=== PATIENT | female | born 1965 | race Caucasian/White ===

== ENCOUNTER 2020-01-22 06:18 | Emergency (ER) | payer SELFPAY ==
[2020-01-22] MEDS ORDERED: Sodium Chloride 0.9% 10 ML Syringe FLUSH PRN (06:33)
[2020-01-22] MEDS ORDERED: Sodium Chloride 0.9% 2.5 ML Syringe FLUSH PRN (06:33)
[2020-01-22] MEDS ORDERED: Aspirin 81 MG Tab.Chew PO ONE (06:34)
--- NOTE | 2020-01-22 06:37 | EDM.PDOC ---
<Esteban Dubon - Last Filed: 01/22/20 18:28> ED HPI GENERAL MEDICAL PROBLEM - General Chief Complaint: Chest Pain Stated Complaint: HEADACHE Time Seen by Provider: 01/22/20 06:25 - History of Present Illness INITIAL COMMENTS - FREE TEXT/NARRATIVE: Patient was signed out to me by Dr. Ricks pending labs and imaging at 7 AM I did reevaluate the patient and the patient is still having intermittent left- sided chest pain which she describes as sharp lasting approximately 10 seconds not associated with diaphoresis, nausea, or vomiting. 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 She did get retested this morning and that result is pending. She denies any radiation of this pain to her back and denies any shortness of breath, cough, fever, or chills. At the time of my reevaluation her blood pressure improved to 190/94 with adequate oxygenation and the patient was not tachycardic. Labs reviewed CBC reveals thrombocytosis with a platelet count of 480. D-dimer was negative. CMP reveals hypokalemia at 3.3 and a mildly elevated BUN at 21 otherwise unremarkable. Troponin is negative. The radiological images were viewed by myself along with reading the report from the radiologist. Chest x-ray does not reveal any acute cardiopulmonary process. I did have a discussion with the patient regarding the pain. At this time we will try to treat her symptomatically. We will provide her with [place] by mouth for pain relief. I will also replenish her potassium by mouth. At this time given there is been approximately 6 hours since chest pain started and troponin is negative this is unlikely to be cardiac in nature, given that the D-dimer is negative this is also highly unlikely this is a pulmonary embolism or aortic dissection. We will reevaluate the patient after symptomatic treatment. After period of observation the patient continued to remain hemodynamically stable. I did refill the patient's lisinopril prescription. I discussed with her at this time that she be stable for discharge. I discussed with her that she needs to follow-up with her primary care physician within 2 to 3 days. She is to take Tylenol and Motrin for any pain relief. She was amenable discharge at this time and had no further questions DISPOSITION: The patient was discharged home in stable condition. The patient will follow up with PCP within 2 to 3 days CONDITION: Fair PROCEDURES: None FINAL IMPRESSION(S)/DIAGNOSES: 1. Acute atypical chest pain Esteban Dubon M.D. - Related Data Allergies Allergy/AdvReac Type Severity Reaction Status Date / Time No Known Allergies Allergy Verified 01/22/20 06:29 Home Meds: Home Meds Desvenlafaxine Succinate [Pristiq ER] 200 mg PO DAILY 01/22/20 [History] Ibuprofen [Motrin] 800 mg PO BIDM PRN 01/22/20 [History] lisinopriL [Lisinopril] 40 mg PO DAILY #30 01/22/20 [Rx] Departure - Departure Time of Disposition: 09:06 Disposition: Home, Self-Care 01 Clinical Impression: Chest wall pain - Discharge Information *PRESCRIPTION DRUG MONITORING PROGRAM REVIEWED*: No *COPY OF PRESCRIPTION DRUG MONITORING REPORT IN PATIENT MAYI: No Prescriptions: lisinopriL [Lisinopril] 40 mg PO DAILY #30 Instructions: Chest Wall Pain, [id number] Referrals: PCP,None [Primary Care Provider] - Forms: ED Department Discharge Additional Instructions: [id number] anti-inflammatory medicines are best for this type of pain. Sleep is imperative. Must get plenty of rest. Please follow up with your PCP in [place]. Return to ED if you have worsening chest pain, shortness of breath. [facility] [address] [place] [address] [place] [address] The following information is given to patients seen in the emergency department who are being discharged to home. This information is to outline your options for follow-up care. We provide all patients seen in our emergency department with a follow-up referral. The need for follow-up, as well as the timing and circumstances, are variable depending upon the specifics of your emergency department visit. If you don't have a primary care physician on staff, we will provide you with a referral. We always advise you to contact your personal physician following an emergency department visit to inform them of the circumstance of the visit and for follow-up with them and/or the need for any referrals to a consulting specialist. The emergency department will also refer you to a specialist when appropriate. This referral assures that you have the opportunity for follow-up care with a specialist. All of these measure are taken in an effort to provide you with optimal care, which includes your follow-up. Under all circumstances we always encourage you to contact your private physician who remains a resource for coordinating your care. When calling for follow-up care, please make the office aware that this follow-up is from your recent emergency room visit. If for any reason you are refused follow-up, please contact the [facility] Emergency Department at and asked to speak to the emergency department charge nurse. <Tre Ricks - Last Filed: 01/22/20 18:36> ED HPI GENERAL MEDICAL PROBLEM - History of Present Illness INITIAL COMMENTS - FREE TEXT/NARRATIVE: History of present illness: [] Patient complains of chest pain. She works nights but was off the night. She does not sleep much during the nights that she is off. At 1 AM while she was laying down she got a sudden sharp chest pain that lasted 20 seconds. It is in the left chest. She got another one at 2 AM. It also lasted 20 seconds. During that time. Tonight she has diaphoresis but it is unrelated to the ep isodes of pain. Nothing makes the pain worse or brings it on. It is sharp and severe. It is happening more frequently as the night goes on but not lasting longer. 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 Cardiovascular risk-she is a non-smoker and not diabetic. She takes lisinopril 40 mg a day and did not get a dose in the last 24 hours because she is out of her medicine. She does not take any medicine for cholesterol. 2. Thromboembolic risk she is obese. She does not smoke or take exogenous hormones. She has not had any recent immobilization or surgery. She has a negative personal and family history of thromboembolic disease. Review of systems: As per history of present illness and below otherwise all systems reviewed and negative. Past medical history: As per history of present illness and as reviewed below otherwise noncontributory. Surgical history: As per history of present illness and as reviewed below otherwise noncontribu tory. Social history: No reported history of drug or alcohol abuse. Family history: As per history of present illness and as reviewed below otherwise noncontributory. Physical exam: Constitutional - well developed, well-nourished and in no acute distress HEENT - normocephalic, no evidence of trauma - external nose and mouth normal - no mass in neck and no JVD - mucosae moist EYES - full EOM, PERRL, no icterus - no evidence of inflammation, injection, or drainage Respiratory -reproducible chest pain when pressure on the left sternal border at the mid sternum. No respiratory distress, equal bilateral expansion, lungs clear to auscultation and no abnormal lung sounds Cardiovascular - Regular Rhythm with S1 and S2 appreciated and no murmur, gallop or rub. GI - abdomen soft without distension or organomegaly - normal bowel sounds - no guard or rebound Musculoskeletal no gross deformity of long bones or joints - no tenderness, swelling or edema Neurologic - Alert and oriented times four - CN II-XII grossly intact - motor sensory and coordination symmetrically normal Psychiatric - appropriate mood and affect with normal thought content Hematologic - No petechiae or purpura - mucosa appropriate color and sclera not pale - normal nail bed color and refill Integument - no rash or evidence of trauma - normal turgor Diagnostics: [] Therapeutics: [] Impression: [] Plan: [] Definitive disposition and diagnosis as appropriate pending reevaluation and review of above. upper chest Pain Score (Numeric/FACES): 0 headache Pain Score (Numeric/FACES): 4 ED ROS GENERAL - Review of Systems Review Of Systems: Comprehensive ROS is negative, except as noted in HPI. ED EXAM, GENERAL - Physical Exam Exam: See Below Free Text/Narrative:: Physical exam is in the HPI. #1 Interpretation EKG Interpretation Comments: EKG done 01/22/2020 at 6:25 AM and interpreted at 631 sinus rhythm with a heart rate of 80 CA interval 182. QT duration 419. [place] 62. Wave progression. Transition is noted. Nonspecific ST abnormality. No prior for comparison. Impression no acute injury. Course - Vital Signs Text/Narrative:: Response to therapy and results of the testing to be evaluated by my partner as my shift is ending. Last Recorded V/S: Last Vital Signs Temp 36.1 C 01/22/20 06:22 Pulse 68 01/22/20 09:30 Resp 16 01/22/20 09:30 BP 162/93 H 01/22/20 09:30 Pulse Ox 97 01/22/20 09:30 - Orders/Labs/Meds Orders: Active Orders 24 hr Category Date Time Status Saline Lock Insert [OM.PC] Stat Oth 01/22/20 06:33 Ordered Labs: Laboratory Tests 01/22/20 01/22/20 01/22/20 Range/Units 06:30 06:30 06:30 WBC 8.14 (4.0-11.0) K/uL RBC 4.77 (4.30-5.90) M/uL Hgb 14.4 (12.0-16.0) g/dL Hct 42.1 (36.0-46.0) % MCV 88.3 (80.0-98.0) fL MCH 30.2 (27.0-32.0) pg MCHC 34.2 (31.0-37.0) g/dL RDW Std Deviation 39.4 (28.0-62.0) fl RDW Coeff of Deborah 12 (11.0-15.0) % Plt Count 480 H (150-400) K/uL MPV 9.10 (7.40-12.00) fL Neut % (Auto) 47.9 L (48.0-80.0) % Lymph % (Auto) 42.0 H (16.0-40.0) % [place] % (Auto) 7.1 (0.0-15.0) % Eos % (Auto) 2.5 (0.0-7.0) % Baso % (Auto) 0.5 (0.0-1.5) % Neut # (Auto) 3.9 (1.4-5.7) K/uL Lymph # (Auto) 3.4 H (0.6-2.4) K/uL [place] # (Auto) 0.6 (0.0-0.8) K/uL Eos # (Auto) 0.2 (0.0-0.7) K/uL Baso # (Auto) 0.0 (0.0-0.1) K/uL Nucleated RBC % 0.0 /100WBC Nucleated RBCs # 0 K/uL D-Dimer, Quantitative 0.32 (0.0-0.50) mg/L FEU Sodium 141 (136-145) mmol/L Potassium 3.3 L (3.5-5.1) mmol/L Chloride 105 (98-107) mmol/L Carbon Dioxide 26.3 (21.0-32.0) mmol/L BUN 21 H (7.0-18.0) mg/dL Creatinine 1.0 (0.6-1.0) mg/dL Est Cr Clr Drug Dosing 60.21 mL/min Estimated GFR (MDRD) 57.8 ml/min Glucose 104 (74-106) mg/dL Calcium 9.5 (8.5-10.1) mg/dL Total Bilirubin 0.2 (0.2-1.0) mg/dL AST 18 (15-37) IU/L ALT 21 (14-63) IU/L Alkaline Phosphatase 106 (46-116) U/L Troponin I < 0.050 (0.000-0.056) ng/mL Total Protein 7.6 (6.4-8.2) g/dL Albumin 3.8 (3.4-5.0) g/dL Globulin 3.8 (2.6-4.0) g/dL Albumin/Globulin Ratio 1.0 (0.9-1.6) Meds: Medications Discontinued Medications Generic Name Dose Route Start Last Admin Trade Name Freq PRN Reason Stop Dose Admin Hydrocodone Bitart/Acetaminophen 1 tab 01/22/20 07:20 01/22/20 07:31 [place] 325-5 Mg PO 01/22/20 07:21 1 tab ONETIME ONE Administration Aspirin 324 mg 01/22/20 06:34 01/22/20 06:48 Aspirin PO 01/22/20 06:35 324 mg ONETIME ONE Administration Metoprolol Tartrate 5 mg 01/22/20 06:44 01/22/20 06:50 Lopressor IVPUSH 01/22/20 06:45 5 mg ONETIME ONE Administration Metoprolol Tartrate Confirm 01/22/20 06:44 01/22/20 06:56 Lopressor Administered 01/22/20 06:45 Not Given Dose 5 mg .ROUTE .STK-MED ONE Potassium Chloride 40 meq 01/22/20 07:13 01/22/20 07:34 Potassium Chloride Solution PO 01/22/20 07:14 Not Given ONETIME ONE Potassium Chloride Confirm 01/22/20 07:26 01/22/20 07:34 Potassium Chloride Administered 01/22/20 07:27 Not Given Dose 40 meq .ROUTE .STK-MED ONE Potassium Chloride 40 meq 01/22/20 07:30 01/22/20 07:47 Klor-Con M20 PO 01/22/20 07:31 40 meq ONETIME ONE Administration Sodium Chloride 10 ml 01/22/20 06:33 01/22/20 06:56 Saline Flush FLUSH 10 ml ASDIRECTED PRN Administration Keep Vein Open Sodium Chloride 2.5 ml 01/22/20 06:33 01/22/20 06:56 Saline Flush FLUSH 2.5 ml ASDIRECTED PRN Administration Keep Vein Open Departure - Departure Condition: Good Sepsis Event Note (ED) - Evaluation Sepsis Screening Result: No Definite Risk - Focused Exam Vital Signs: Vital Signs Pulse Pulse Resp BP BP Pulse Ox 01/22/20 09:30 68 16 162/93 H 97 01/22/20 08:08 65 17 193/97 H 98 01/22/20 07:22 68 17 199/103 H 97 01/22/20 07:08 61 17 190/94 H 98 01/22/20 06:50 76 183/99 H - My Orders Last 24 Hours: My Active Orders 01/22/20 06:33 Saline Lock Insert [OM.PC] Stat - Assessment/Plan Last 24 Hours: My Active Orders 01/22/20 06:33 Saline Lock Insert [OM.PC] Stat
[2020-01-22] MEDS ORDERED: Metoprolol Tartrate 5 MG/5 ML SDV IVPUSH ONE (06:44)
[2020-01-22] MEDS ORDERED: Metoprolol Tartrate 5 MG/5 ML SDV ONE (06:44)
--- NOTE | 2020-01-22 07:02 | CR ---
INDICATION: Chest pain COMPARISON: none TECHNIQUE: Portable AP erect chest performed at 6:46 a.m. FINDINGS: The lungs are clear. There is no evidence of pneumothorax. The heart, mediastinum and pulmonary vessels are of normal size. There is no evidence of pleural fluid. IMPRESSION: Negative chest. Dictated by Epi Degroot MD @ Jan 22 2020 6:59AM Signed by Dr. Epi Degroot @ Jan 22 2020 7:00AM
[2020-01-22 07:09] LABS: BLOOD UREA NITROGEN,BUN 21 mg/dL (7.0-18.0); CARBON DIOXIDE,CO2 26.3 mmol/L (21.0-32.0); CHLORIDE,CL 105 mmol/L (98-107); GLUCOSE RANDOM 104 mg/dL (74-106); POTASSIUM,K 3.3 mmol/L (3.5-5.1); SODIUM,NA 141 mmol/L (136-145)
[2020-01-22] MEDS ORDERED: Potassium Chloride 10% 20 MEQ/15 ML Soln 15 ML UD Cup PO ONE (07:13)
[2020-01-22] MEDS ORDERED: Acetaminophen/HYDROcodone 325-5 MG Tab PO ONE (07:20)
[2020-01-22] MEDS ORDERED: Potassium Chloride 10% 20 MEQ/15 ML Soln 30 ML UD Cup ONE (07:26)
[2020-01-22] MEDS ORDERED: Potassium Chloride 20 MEQ Tab.ER PO ONE (07:30)
== END 2020-01-22 09:37 | disposition home or self-care (01) ==
LOC: MW.ED 06:18
DX: R07.89 Other chest pain (principal); D47.3 Essential (hemorrhagic) thrombocythemia; E66.9 Obesity, unspecified; Z68.35 Body mass index [BMI] 35.0-35.9, adult
CPT/HCPCS: 36415; 71045; 80053; 84484; 85025; 85379; 96374; 99285; A9270; J3490